=== PATIENT | male | born 1980 | race Two or more races ===

== ENCOUNTER 2017-01-23 06:01 | Emergency (ER) | payer MEDICAID, OTHER ==
[~2017-01-23] VITALS: Ht 165.1 cm; Wt 63.5 kg
[2017-01-23 06:05] VITALS: BP 151/83
== END 2017-01-23 08:54 | disposition left against medical advice (07) ==
LOC: ER 06:01
DX: F15.10 Other stimulant abuse, uncomplicated (principal); Z53.21 Procedure and treatment not carried out due to patient leaving prior to being seen by health care provider